=== PATIENT | male | born 1960 | race Caucasian/White ===

== ENCOUNTER → 2016-09-04 | Outpatient (CLI) | payer OTHER ==
[~2016-09-04] MED LIST: ASPI81TA21 PO; CRG3125 PO; FEXO180T PO; FISHOIL PO; LTR510 PO; MULTTAB58 PO; PRLSR20 PO; RXC5 PO; SILD100T PO; VITAMIN D PO
[2016-09-04 13:25] LABS: BASO % 0.3 %; BASO ABS # 0.02 K/uL (0-0.2); COMPLETE YES; EOS % 3.2 %; HEMATOCRIT 43.7 % (42-52); LYMPH % 34.8 %; LYMPH ABS # 2.04 K/uL (1.2-3.4); MEAN CORPUSCULAR HEMOGLOBIN 32.2 pg (25-34); MEAN PLATELET VOLUME 11.3 fL (7.4-10.4); MONO % 10.2 %; NEUT % 51.5 %; PLATELET COUNT 194 K/uL (130-400); RED BLOOD COUNT 4.75 M/uL (4.7-6.1); WHITE BLOOD COUNT 5.87 K/uL (4.8-10.8)
[2016-09-04 13:44] LABS: ALT/SGPT 37 U/L (12-78); AST/SGOT 23 U/L (15-37); BLOOD UREA NITROGEN 14 mg/dl (7-18); BUN/CREATININE RATIO 19.8 (10-20); CALCIUM 8.7 mg/dl (8.5-10.1); CARBON DIOXIDE 27 mmol/L (21-32); CHLORIDE 107 mmol/L (98-107); CHOLESTEROL 163 mg/dl (0-200); CREATININE 0.73 mg/dl (0.60-1.40); GLUCOSE 89 mg/dl (70-99); POTASSIUM 4.3 mmol/L (3.5-5.1); SODIUM 143 mmol/L (136-145)
[2016-09-04 13:49] LABS: ALB/GLOB RATIO 1.1 (0.9-2); ALKALINE PHOSPHATASE 59 U/L (45-117); CHOLESTEROL/HDL RATIO 2.2; HDL CHOLESTEROL 74 mg/dl; LDL CHOLESTEROL CALCULATED 69 mg/dl; PROSTATE SPECIFIC ANTIGEN 0.213 ng/ml (0.000-4.000); TRIGLYCERIDES 98 mg/dl (0-150); VERY LOW DENSITY LIPOPROT CALC 20 mg/dl
== END | disposition home or self-care (01) ==
LOC: C.LABPBG 07:43
PROVIDERS: ATTEND Neuromusculoskeletal Medicine & OMM
DX: Z00.00 Encounter for general adult medical examination without abnormal findings (principal); I10 Essential (primary) hypertension

== ENCOUNTER → 2016-11-14 | Outpatient (CLI) | payer OTHER ==
--- NOTE | 2016-11-14 15:45 | DIAGNOSTIC IMAGING REPORT ---
LEFT FOOT MIN 3 VIEWS ROUTINE CLINICAL HISTORY: Left foot pain COMPARISON: None. DISCUSSION: No fractures or dislocations are visualized. There are no erosive or destructive changes. There are tiny calcaneal spurs. There are minor arthritic changes the level the first metatarsal phalangeal joint. IMPRESSION: 1. No acute fractures 2. No destructive or erosive changes. Electronically signed by: Ramiro Moreno M.D. 11/14/2016 3:44 PM Dictated Date/Time: 11/14/2016 3:43 PM
== END | disposition home or self-care (01) ==
LOC: C.RAD 15:21
PROVIDERS: ATTEND Neuromusculoskeletal Medicine & OMM
DX: M79.672 Pain in left foot (principal)

== ENCOUNTER → 2017-06-20 | Outpatient (CLI) | payer OTHER ==
[2017-06-20 13:57] LABS: BLOOD UREA NITROGEN 11 mg/dl (7-18); BUN/CREATININE RATIO 14.7 (10-20); CALCIUM 9.3 mg/dl (8.5-10.1); CARBON DIOXIDE 26 mmol/L (21-32); CHLORIDE 105 mmol/L (98-107); CREATININE 0.76 mg/dl (0.60-1.40); GLUCOSE 95 mg/dl (70-99); POTASSIUM 3.9 mmol/L (3.5-5.1); SODIUM 137 mmol/L (136-145)
== END | disposition home or self-care (01) ==
LOC: C.LABPBG 10:33
PROVIDERS: ATTEND Internal Medicine Cardiovascular Disease
DX: I10 Essential (primary) hypertension (principal)

== ENCOUNTER → 2017-06-21 | Outpatient (CLI) | payer OTHER ==
--- NOTE | 2017-06-21 15:07 | DIAGNOSTIC IMAGING REPORT ---
R SHOULDER MIN 2 VIEWS ROUTINE HISTORY: 57 years-old Male M25.511 Right shoulder [id number] acute right shoulder pain COMPARISON: Chest radiograph 02/11/2014 TECHNIQUE: 3 views of the right shoulder FINDINGS: Mild acromioclavicular and glenohumeral degenerative changes without acute fracture or dislocation. There is fusion hardware of the lower cervical spine. Imaged lung cisneros appear clear. IMPRESSION: No acute fracture or dislocation. The above report was generated using voice recognition software. It may contain grammatical, syntax or spelling errors. Electronically signed by: Jose Real M.D. 06/21/2017 3:06 PM Dictated Date/Time: 06/21/2017 2:56 PM
== END | disposition home or self-care (01) ==
LOC: C.RAD 14:29
PROVIDERS: ATTEND Family Medicine
DX: M25.511 Pain in right shoulder (principal)